=== PATIENT | male | born 1950 | race Caucasian/White ===

== ENCOUNTER → 2017-06-24 | Outpatient (CLI) | payer MEDICARE, OTHER ==
[~2017-06-24] MED LIST: BENICAR; BENICAR40 MG PO; BUMETANIDE2 MG; CELEBREX200 MG PO; CIPRO500 MG PO; COLACE100 MG PO; FISH OIL 10001000 MG PO; HYDRO/APAP; HYDROCODONE BIT1 T11 PO; KLOR-CON M2020 MEQ; LASIX40 MG PO; MULTIPLE VITAMI1 CAP PO; NATURAL E400 IU PO; SIMVASTATIN; SIMVASTATIN40 MG PO; VICODIN ES 7501 TA1 PO; VICODIN ES 7501 TAB PO; VITAMIN B COMPL1 TA1; VITAMIN C500 MG PO
[2017-06-24 09:53] LABS: HEMATOCRIT 45.7 % (42.0-52.0); HEMOGLOBIN 15.4 g/dl (14.0-18.0); MEAN CELL VOLUME 97.4 fl (80.0-94.0); MEAN CORPUSCULAR HGB 32.8 pg (27.0-31.0); MEAN CORPUSCULAR HGB CONC 33.7 g/dl (33.0-37.0); MEAN PLATELET VOLUME 9.2 fl (9.6-12.3); RED BLOOD COUNT 4.69 10*6/uL (4.50-5.90); RED CELL DISTRI WIDTH 13.6 % (0-14.5); WHITE BLOOD COUNT 6.8 10*3/uL (4.8-10.8)
[2017-06-24 10:24] LABS: ALBUMIN 3.1 gm/dl (3.1-4.5); ALKALINE PHOSPHATASE 93 U/L (45-117); BUN 11 mg/dl (7-24); CHLORIDE 108 mmol/L (98-107); CHOLESTEROL 192 mg/dL (<200); CREATININE 0.99 mg/dL (0.70-1.30); HDL CHOLESTEROL 32 mg/dl (40-60); LDL CHOLESTEROL 121 mg/dL (9-159); POTASSIUM 3.8 mmol/L (3.5-5.1); SGOT/AST 21 IU/L (3-35); SGPT/ALT 23 U/L (12-78); SODIUM 141 mmol/L (136-145); TOTAL PROTEIN 7.2 gm/dL (6.4-8.2); TRIGLYCERIDES 194 mg/dl (<150); VLDL CHOLESTEROL 39 mg/dL (6-40)
== END | disposition home or self-care (01) ==
LOC: LAB 09:36
PROVIDERS: Family Medicine
DX: Z12.5 Encounter for screening for malignant neoplasm of prostate (principal); E78.00 Pure hypercholesterolemia, unspecified; E74.9 Disorder of carbohydrate metabolism, unspecified; R53.83 Other fatigue; Z79.899 Other long term (current) drug therapy

== ENCOUNTER 2019-07-24 09:22 | Inpatient (IN) | payer OTHER ==
[~2019-07-24] VITALS: Ht 172.7 cm; Wt 134.4 kg
[~2019-07-24 09:22] MED LIST changes: +BUMETANIDE2 MG PO; +CRESTOR10 M1 PO; +FLUCONAZOLE100 MG PO; +KEFLEX 500 MG E2 CAP PO; +LISINOPRIL2.5 MG PO; +METOPROLOL SUCC50 M1 PO; +MOBIC15 MG PO; +Nizoral 2%15 GM T; +PERCOCET 10-321 EACH PO; +PERCOCET 7.5 MG-325 PO; +TIZANIDINE HCL2 MG PO; +TRAZODONE50 MG PO; +XARE20MG PO; +ZANAFLEX2 M2 PO
[2019-07-24 09:31] VITALS: BP 109/63
[2019-07-24 09:40] LABS: BASO % 0.5 % (0.0-1.0); EOS # 0.1 10*3/uL (0.0-0.4); EOS % 0.7 % (1.0-4.0); HEMATOCRIT 43.2 % (42.0-52.0); HEMOGLOBIN 13.5 g/dl (14.0-18.0); LYMPH # 0.6 10*3/uL (1.3-4.4); LYMPH % 7.3 % (27.0-41.0); MEAN CELL VOLUME 100.7 fl (80.0-94.0); MEAN CORPUSCULAR HGB 31.5 pg (27.0-31.0); MEAN CORPUSCULAR HGB CONC 31.3 g/dl (33.0-37.0); MEAN PLATELET VOLUME 9.2 fl (9.6-12.3); MONO # 0.6 10*3/uL (0.1-1.0); MONO % 6.5 % (3.0-9.0); NEUT # 7.1 10*3/uL (2.3-7.9); NEUT % 84.4 % (47.0-73.0); PLATELET COUNT AUTOMATED 207 10*3/uL (130-400); RED BLOOD COUNT 4.29 10*6/uL (4.50-5.90); RED CELL DISTRI WIDTH 15.8 % (0-14.5); WHITE BLOOD COUNT 8.4 10*3/uL (4.8-10.8)
[2019-07-24 09:51] LABS: ACT PARTIAL THROMBO TIME 32.5 SECONDS (20.0-32.1); INTERNATIONAL NORM RATIO 1.5 (2.0-3.5)
[2019-07-24 09:56] LABS: ALBUMIN 2.9 gm/dl (3.1-4.5); ALKALINE PHOSPHATASE 126 U/L (45-117); BUN 14 mg/dl (7-24); CHLORIDE 109 mmol/L (98-107); CREATININE 1.11 mg/dL (0.70-1.30); POTASSIUM 3.9 mmol/L (3.5-5.1); SGOT/AST 12 IU/L (3-35); SGPT/ALT 13 U/L (12-78); SODIUM 142 mmol/L (136-145); TOTAL PROTEIN 6.8 gm/dL (6.4-8.2)
[2019-07-24 09:58] LABS: TROPONIN I < 0.015 ng/ml (<0.045)
[2019-07-24 10:07] VITALS: BP 102/70
--- NOTE | 2019-07-24 10:44 | NUR ---
PT REFUSES TO HAVE EXCORIATION TO GROIN PHOTOGRAPHED.
[2019-07-24 11:11] VITALS: BP 121/85
--- NOTE | 2019-07-24 11:22 | NUR ---
DR. PICHARDO AT BEDSIDE.
[2019-07-24 12:00] VITALS: BP 168/57
--- NOTE | 2019-07-24 12:11 | NUR ---
[facility] under the services of ALICIA Mosley MD with a diagnosis of CHF. Chief complaint is SOB. Patient arrived via bed from ER. Monitor applied. Initial assessment completed. Vital signs taken and recorded. ALICIA MOSLEY MD notified of admission to the unit. Orders received. See assessment for past medical history, medications and allergies. Patient and/or family oriented to unit. [facility] visitation policy reviewed. Clothing/patient valuable form completed. MARCEL JONES
--- NOTE | 2019-07-24 12:35 | NUR ---
PEWRCOCET GIVEN FOR C/O BLE PAIN. RATES 8/10 ON PAIN SCALE. WILL MONITOR.
--- NOTE | 2019-07-24 13:27 | NUR ---
eating lunch, not available for echo.
--- NOTE | 2019-07-24 13:40 | NUR ---
PERCOCET EFFECTIVE PER PT.
--- NOTE | 2019-07-24 14:05 | NUR ---
DR. LOMAS'S OFFICE NOTIFIED OF CONSULT.
--- NOTE | 2019-07-24 15:22 | NUR ---
COVER INSPECTOR spoke with the patient and his about SNF. Patient stated that he did not want to go to a SNF and wanted Home Healthcare. Patient was not sure which company he has had previous, but would like the same one he was set up with last admission. COVER INSPECTOR provided the patient and his with information on [facility] and Services through [employer]. -MARIA E Solano
[2019-07-24 16:00] VITALS: BP 120/83
[2019-07-24 20:00] VITALS: BP 123/73
--- NOTE | 2019-07-24 21:55 | NUR ---
DR. PICHARDO NOTIFIED OF ELEVATED HEART RATE OF 120'S. ORDER TO GIVE .25MG OF DIGOXIN IV.
--- NOTE | 2019-07-24 23:01 | NUR ---
PER PT, "PERCOCET HELPED MY LEGS"
[2019-07-25] VITALS: BP 113/83
--- NOTE | 2019-07-25 03:04 | NUR ---
24 HR chart check completed.
--- NOTE | 2019-07-25 04:49 | NUR ---
PPRN PO PERCOCET GIVEN PER PT REQUEST FOR C/O RT MAXINE REDDING RATED 04/01
--- NOTE | 2019-07-25 05:45 | NUR ---
PERCOCET BECOMING EFFFECTIVE FOR DISCOMFORT PER PT.
[2019-07-25 08:00] VITALS: BP 108/74
--- NOTE | 2019-07-25 09:56 | NUR ---
NOTIFIED OF CONSULT
[2019-07-25 12:00] VITALS: BP 100/69
--- NOTE | 2019-07-25 12:41 | NUR ---
PHYSICAL THERAPY PT EVAL COMPLETED TODAY ON LEVEL 5: FULL EVAL TO FOLLOW. RECOMMEND PT WHILE HERE TO ADDRESS DECREASED STRENGTH AND FUNCTIONAL MOBILITY. PT EVAL IS MODERATE COMPLEXITY: [id number] D/C REC: HOME WITH HOME HEALTH. THANK YOU FOR REFERRAL KENAN REEDER PT
[2019-07-25 16:00] VITALS: BP 120/72
--- NOTE | 2019-07-25 16:25 | NUR ---
AAOX3 SITTING ON SIDE OF BED. 02 INTACT AT 2LPM VIA NASAL CANNULA; PT. STATES THAT HE DOES NOT WEAR O2 AT HOME. LUNGS DIMINISHED WITH NO COUGH NOTED. ABDOMEN OBESE. PT. VOCIES NO C/O AT THIS TIME; NO DISTRESS NOTED. CALL LIGHT WITHIN REACH. BLOOD SUGAR 111.
[2019-07-25 20:00] VITALS: BP 101/73
[2019-07-26] VITALS: BP 95/59
[2019-07-26 08:00] VITALS: BP 109/74
[2019-07-26 12:00] VITALS: BP 142/72
[2019-07-26 16:00] VITALS: BP 94/65
[2019-07-26 20:00] VITALS: BP 80/40
--- NOTE | 2019-07-26 20:35 | NUR ---
Neurological: AAOX3 Respiratory: NONLABORED, ROOM AIR Breath sounds: DIMINISHED T/O Cough: OCCASIONAL DRY Cardiovascular: HRR, DENIES CP/PRESSURE, OBESITY VS. EDEMA, PPP Gastrointestinal: NORMOACTIVE X4 QUADS, DENIES N/V/D/C, ABD SOFT/NONTENDER/OBESE Genito/Urinary: DENIES DYSURIA Musculoskeketal: AMBULATORY, ESCORIATION TO ABD FOLDS/BREASTS/INNER THIGHS PATIENT IS SITTING ON SIDE OF BED WITH NO S/S OF DISTRESS OR C/O NOTED. BED IS LOW, LOCKED, AND CALL LIGHT IS WITHIN REACH. WILL CONTINUE TO MONITOR. MAUREEN DIALLO A
[2019-07-26 21:17] VITALS: BP 98/70
[2019-07-27] VITALS: BP 96/51
--- NOTE | 2019-07-27 02:30 | NUR ---
DR. PICHARDO CONTACTED IN REGARDS TO 16 BEAT RUN OF [facility], MAGNESIUM LEVEL ORDERED AND INSTRUCTED TO CONTACT DR. CAMPOS.
--- NOTE | 2019-07-27 02:32 | NUR ---
DR. CAMPOS IS NOT AVALIABLE AT THIS TIME, WILL TRY AGAIN WHEN AVALIABLE.
--- NOTE | 2019-07-27 07:25 | NUR ---
DR. CAMPOS AWARE OF 16 BEAT RUN OF [facility].
[2019-07-27 07:39] LABS: BUN 22 mg/dl (7-24); CHLORIDE 103 mmol/L (98-107); CREATININE 1.13 mg/dL (0.70-1.30); POTASSIUM 3.7 mmol/L (3.5-5.1); SODIUM 138 mmol/L (136-145)
[2019-07-27 09:45] VITALS: BP 98/64
--- NOTE | 2019-07-27 10:30 | NUR ---
Test Consultant in to talk to patient. Patient states lives at home with his . There are 0 steps in the home. There is a stair glide. Physician: Dr. Roosevelt Rice but would like to start seeing Dr. Quigley (Dr. Quigley notified) Pharmacy: [facility]: has had [facility] previously and would like their services again upon discharge Patient's level of ADLs: MINIMAL ASSIST Patient has working utilities: yes DME: walker, cane Follow-up physician's appointment after d/c: he prefers to make his own follow up appt after discharge Does patient want to access PORTAL?: no Discharge plan discussed with patient. He lives at home with his . He is independent in his ADLs and ambulates with either a walker or a cane. Discussed short term SNF and he states he will not go back to [facility]. Discussed other SNF facilities and he refuses. Discussed home health care services and he is agreeable and would like [facility] services as he has had them in the past. When medically stable he will be discharged to home with [facility]. His will provide transportation on discharge. SORAIDA MELENDEZ
--- NOTE | 2019-07-27 10:38 | NUR ---
CHRISTOFER FERNANDO [id number] Please refer to the physician's history and physical for past medical history, comorbid conditions, and allergies. Diagnosis: ACUTE EXACERBATION OF CHF Tulio Score: 16,AT RISK WOUND DESCRIPTIONS: Wound Number: 1 Location of the wound: right anterior lower extremity (toro) Thickness: Full Size: 2.2cm x 2.7cm x 0.1cm Tunneling: none Undermining: none Sinus Tract: none Presence of Exudate: Serous Amount: Light Color: Brown, yellow, red Odor: None Periwound Skin Appearance: Erythema Wound edges: approximated Pain (associated with wound): none at time of assessment How does patient state this happened? pt stated this comes and goes Wound Number: 2 Location of the wound: left breast Type of wound: fungal Thickness: Partial Size: 9.5cm x 30.0cm x 0.1cm Tunneling: none Undermining: none Sinus Tract: none Presence of Exudate: Serous Amount: Light Color: Red Odor: Musty Periwound Skin Appearance: Normal Wound edges: approximated Pain (associated with wound): tender to touch How does patient state this happened? pt stated he gets this all the time Wound Number: 3 Location of the wound: right calf Type of wound: fungal Thickness: Partial Size: 2.5cm x 4.3cm x 0.1cm Tunneling: none Undermining: none Sinus Tract: none Presence of Exudate: Serous Amount: Light Color: Red Odor: None Periwound Skin Appearance: Normal Wound edges: approximated Pain (associated with wound): none at time of assessment How does patient state this happened? pt stated this comes and goes Wound Number: 4 Location of the wound: groin to umbilicus Type of wound: fungal Thickness: Partial Size: 38.0cm x 80.0cm x 0.1cm Tunneling: none Undermining: none Sinus Tract: none Presence of Exudate: Serous Amount: Light Color: Red Odor: None Periwound Skin Appearance: Erythema Wound edges: approximated Pain (associated with wound): tender to touch How does patient state this happened? pt stated this comes and goes Wound Number: 5 Location of the wound: right breast Type of wound: fungal Thickness: Partial Size: 38.0cm x 80.0cm x 0.1cm Tunneling: none Undermining: none Sinus Tract: none Presence of Exudate: Serous Amount: Light Color: Red Odor: None Periwound Skin Appearance: Erythema Wound edges: approximated Pain (associated with wound): tender to touch How does patient state this happened? pt stated this comes and goes Surface the patient is resting on: Isoflex SKIN PREVENTION RECOMMENDATION: 1. Pressure redistribution support surface as appropriate 2. Elevate heels 3. Remove boots/TEDS every shift and reapply 4. Head of bed 30 degrees as tolerated 5. Assess nutrition and hydration 6. Manage moisture 7. Avoid the use of containment devices while in bed 8. Use absorptive products on surfaces limit layers of linens on bed 9. Turn and reposition every 1-2 hours in bed and every 1 hour in chair as tolerated 10. Weight shifts every 15 minutes while up in chair 11. Offloading with pillows or device to keep heels elevated off bed 12. Monitor skin at least every shift 13. Inspect under medical devices twice a day WOUND TREATMENT RECOMMENDATIONS: Venous and arterial studies for non-healing wound. Consult podiatry podiatry for possible debridement if studies allow. Full thickness guidelines: Cleanse right anterior lower extremity and right posterior lower extremity with nss and apply sureprep around the wound therahoney to wound bed and cover with optifoam gentle every 2 days and prn for soiling. Continue nystatin powder: Cleanse bilateral breasts and bilateral groins with soap and water and apply nystatin powder every [address] abd pads Patient is on PO antifungal medication diflucan til 07/31/19. Heel raiser pro boots to bilateral feet while in bed.
[2019-07-27 12:00] VITALS: BP 102/58
--- NOTE | 2019-07-27 13:41 | NUR ---
Occupational therapy orders received and chart reviewed. Per patient, he was not "feeling up to it" for the completion of the OT evaluationa and POC. Will follow up with patient. Thank you. Freida Blackman, OTR/L
--- NOTE | 2019-07-27 14:12 | NUR ---
PHYSICAL THERAPY Patient was approached several times this pm for therapy and was receiving nursing care on first attempt and out of his room for a CT Scan upon second attempt. Will continue per POC as able. Ventura Banegas, TOWER EXCAVATOR OPERATOR
[2019-07-27 16:00] VITALS: BP 95/66
--- NOTE | 2019-07-27 18:12 | NUR ---
Percocet given per patient request for c/o chronic leg pain rated 7/10. Will monitor.
[2019-07-27 20:00] VITALS: BP 129/67
[2019-07-28] VITALS: BP 112/60
--- NOTE | 2019-07-28 02:23 | NUR ---
PERCOCET GIVEN FOR 08/02 PAIN TO RT LEG PER PT REQUEST. CALL LIGHT IN [facility].
--- NOTE | 2019-07-28 02:39 | NUR ---
PT RESTING ON BACK; SNORING RESPIRATIONS EASY AND REGULAR ON ROOM AIR. PRN PERCOCET EFFEECTIVE FOR PAIN. CALL LIGHT WITHIN REACH.
--- NOTE | 2019-07-28 08:43 | NUR ---
PHYSICAL THERAPY Patient requests that therapy come back later in the morning due to the patient presently eating breakfast and needing to rest a little longer. Will check back later with patient. CELENA ISAACS PLANT HR MANAGER
--- NOTE | 2019-07-28 10:30 | NUR ---
Application Support Developer in to see patient. No new needs or request at this time. When medically stable he will be discharged to home with [facility] services. Per multidisciplinary discharge planning meeting continue to diuresis with Bum[employer].
[2019-07-28 12:00] VITALS: BP 93/67
--- NOTE | 2019-07-28 13:37 | NUR ---
Patient declined Occupational Therapy evaluation reporting he fell today near the bathroom door. Patient stated that staff was with him and "it too seven of them to get me up" Patient stated his left foot was sore. He declined OT evaluation this date. Jeanne Ellington OTR/L
--- NOTE | 2019-07-28 14:11 | NUR ---
PHYSICAL THERAPY Patient declined therapy saying he fell earlier and hurt his L foot. Patient also says he doesn't feel well and has pain in his L foot. His is present and says, the patient is "grumpy" right now. Physical Therapy will check back at a later date. CELENA ISAACS ROLLER SHOP UTILITY WORKER
[2019-07-28 20:00] VITALS: BP 110/48
[2019-07-28 20:55] VITALS: BP 110/68
--- NOTE | 2019-07-28 21:00 | NUR ---
SPOKE WITH CECILIO FROM PHARMACY.WILL BE SENDING MORE NYSTATIN POWDER UP.
[2019-07-29] VITALS: BP 136/82
--- NOTE | 2019-07-29 00:01 | NUR ---
PRN PERCOCET ADMINISTERED PRESCRIBED FOR PT C/O LEFT SIDED CHRONIC LEG PAIN RATED AN 8/10 ON THE PAIN SCALE.
--- NOTE | 2019-07-29 07:42 | NUR ---
To c-rehab for stress test.
--- NOTE | 2019-07-29 07:45 | NUR ---
IMFORMED CONSENT OBTAINED FOR A LEXISCAN STRESS TEST WITH DR. PICHARDO. RESTING EKG A-FIB/RBBB WITH A HT RT OF 88, AND A BP OF 110/74. SPO2 97% VIA RA WITH CLEAR BREATH SOUNDS. COMPLETED ONE MINUTE OF A LEXISCAN PROTOCOL RECEIVING LEXISCAN 0.4 MG OVER 10 SECONDS. VOICED NO SYMPTOMS. HAD A PEAK HT RT OF 87, WITH A BP OF 122/64. LAST RECOVERY HT RT OF 95, WITH A BP OF 110/68. AWAITING NUCLEAR IMAGING IN STABLE CONDITION.
--- NOTE | 2019-07-29 07:59 | NUR ---
PHYSICAL THERAPY PT NOT IN ROOM UPON ATTEMPT THIS A.M. NURSING NOTES STATED THAT PT IS A STRESS TEST. PHYSICAL THERAPY WILL ATTEMPT AT A LATER TIME /DATE. GRIFFIN BROWN PTA
[2019-07-29] MEDS ORDERED: NYSTOP60 GM T (08:24)
[2019-07-29] MEDS ORDERED: Lanoxin PO (08:24)
[2019-07-29] MEDS ORDERED: ALDACTONE25 MG PO (08:24)
[2019-07-29] MEDS ORDERED: DOXYCYCLINE100 M3 PO (08:26)
[2019-07-29] MEDS ORDERED: LIPITOR10 MG PO (08:26)
[2019-07-29 08:30] VITALS: BP 1104/68
--- NOTE | 2019-07-29 09:23 | NUR ---
Spoke to Jocelyne at [facility]. They are able to accept patient and start of care will be tomorrow. Faxed referral to [phone].
--- NOTE | 2019-07-29 11:35 | NUR ---
Stress test complete. Dr. Ramirez called and ok to discharge. Dr. Chapa in and recommended f/u with cardiology. Pt. is aware. Discharge instruction given and pt. was taken to lobby to meet w/ waiting spouse. All wounds photographed . prior to discharge.
--- NOTE | 2019-07-29 13:34 | NUR ---
Occupational therapy orders were received and chart had been reviewed. Patient was discharged prior to OT eval and POC. Thank you. Freida Blackman OTR/L
--- NOTE | 2019-07-30 07:59 | NUR ---
PHYSICAL THERAPY CO-SIGN I approve of the Physical Therapy notes written above. Kendra Jain, PT, DPT
== END 2019-07-29 11:35 | disposition home health service (06) | DRG 602 ==
LOC: ED 09:22 → EDHOLD 10:26 → 5E 10:26
PROVIDERS: Internal Medicine; ADMIT Internal Medicine
PROC: 3E073KZ Introduction of Other Diagnostic Substance into Coronary Artery, Percutaneous Approach (ICD-10-PCS; principal; 2019-07-29)
PROC: 4A02XM4 Measurement of Cardiac Total Activity, External Approach (ICD-10-PCS; principal; 2019-07-29)
DX: L03.116 Cellulitis of left lower limb (principal); I50.23 Acute on chronic systolic (congestive) heart failure; J96.10 Chronic respiratory failure, unspecified whether with hypoxia or hypercapnia; E46 Unspecified protein-calorie malnutrition; I47.2 Ventricular tachycardia; Z68.42 Body mass index [BMI] 45.0-49.9, adult; I42.0 Dilated cardiomyopathy; I11.0 Hypertensive heart disease with heart failure; L03.115 Cellulitis of right lower limb; I48.21 Permanent atrial fibrillation; M19.90 Unspecified osteoarthritis, unspecified site; I87.2 Venous insufficiency (chronic) (peripheral); B35.6 Tinea cruris; E66.01 Morbid (severe) obesity due to excess calories; Z96.653 Presence of artificial knee joint, bilateral; H60.11 Cellulitis of right external ear; Z99.81 Dependence on supplemental oxygen; Z88.0 Allergy status to penicillin; Z88.8 Allergy status to other drugs, medicaments and biological substances; Z82.49 Family history of ischemic heart disease and other diseases of the circulatory system; Z80.8 Family history of malignant neoplasm of other organs or systems

== ENCOUNTER 2019-08-01 13:23 | Emergency (ER) | payer OTHER ==
[~2019-08-01] VITALS: Ht 175.2 cm; Wt 135.2 kg
[~2019-08-01 13:23] MED LIST changes: +ALDACTONE25 MG PO; +DOXYCYCLINE100 M3 PO; +LIPITOR10 MG PO; +Lanoxin PO; +NYSTOP60 GM T
== END 2019-08-01 15:19 | disposition home or self-care (01) ==
LOC: ED 13:23
DX: S01.01XA Laceration without foreign body of scalp, initial encounter (principal); S61.011A Laceration without foreign body of right thumb without damage to nail, initial encounter; Z88.0 Allergy status to penicillin; Z87.891 Personal history of nicotine dependence; W01.0XXA Fall on same level from slipping, tripping and stumbling without subsequent striking against object, initial encounter; Y93.89 Activity, other specified; Y92.090 Kitchen in other non-institutional residence as the place of occurrence of the external cause; Y99.8 Other external cause status

== ENCOUNTER 2019-12-22 03:13 | Emergency (ER) | payer OTHER ==
[~2019-12-22] VITALS: Ht 175.2 cm; Wt 131.1 kg
== END 2019-12-22 05:15 | disposition home or self-care (01) ==
LOC: ED 03:13
DX: R04.0 Epistaxis (principal); Z88.8 Allergy status to other drugs, medicaments and biological substances; Z79.899 Other long term (current) drug therapy

== ENCOUNTER 2020-03-25 01:47 | Emergency (ER) | payer OTHER ==
[~2020-03-25] VITALS: Ht 175.2 cm; Wt 126.1 kg
[2020-03-25] MEDS ORDERED: DEBROX15 ML OT (02:33)
== END 2020-03-25 02:49 | disposition home or self-care (01) ==
LOC: ED 01:47
DX: R04.0 Epistaxis (principal); I11.0 Hypertensive heart disease with heart failure; I50.9 Heart failure, unspecified; M19.90 Unspecified osteoarthritis, unspecified site; E78.00 Pure hypercholesterolemia, unspecified; I48.91 Unspecified atrial fibrillation; Z88.8 Allergy status to other drugs, medicaments and biological substances; Z88.0 Allergy status to penicillin; Z79.899 Other long term (current) drug therapy

== ENCOUNTER 2020-04-01 22:49 | Emergency (ER) | payer OTHER ==
[~2020-04-01] VITALS: Ht 172.7 cm; Wt 156.5 kg
[~2020-04-01 22:49] MED LIST changes: +DEBROX15 ML OT
[2020-04-01 23:06] LABS: BASO % 0.4 % (0.0-1.0); EOS # 0.2 10*3/uL (0.0-0.4); EOS % 2.2 % (1.0-4.0); HEMATOCRIT 42.8 % (42.0-52.0); LYMPH # 1.2 10*3/uL (1.3-4.4); LYMPH % 16.3 % (27.0-41.0); MEAN CELL VOLUME 98.6 fl (80.0-94.0); MEAN CORPUSCULAR HGB 32.3 pg (27.0-31.0); MEAN CORPUSCULAR HGB CONC 32.7 g/dl (33.0-37.0); MEAN PLATELET VOLUME 9.1 fl (9.6-12.3); MONO # 0.6 10*3/uL (0.1-1.0); MONO % 7.6 % (3.0-9.0); NEUT # 5.4 10*3/uL (2.3-7.9); NEUT % 73.2 % (47.0-73.0); PLATELET COUNT AUTOMATED 164 10*3/uL (130-400); RED BLOOD COUNT 4.34 10*6/uL (4.50-5.90); RED CELL DISTRI WIDTH 13.3 % (0-14.5); WHITE BLOOD COUNT 7.3 10*3/uL (4.8-10.8)
[2020-04-01 23:16] LABS: ACT PARTIAL THROMBO TIME 34.5 SECONDS (20.0-32.1); INTERNATIONAL NORM RATIO 1.3 (2.0-3.5)
[2020-04-01 23:21] LABS: ALBUMIN 3.3 gm/dl (3.1-4.5); ALKALINE PHOSPHATASE 79 U/L (45-117); BUN 16 mg/dl (7-24); CHLORIDE 110 mmol/L (98-107); CREATININE 1.13 mg/dL (0.70-1.30); POTASSIUM 4.2 mmol/L (3.5-5.1); SGOT/AST 14 IU/L (3-35); SGPT/ALT 19 U/L (12-78); SODIUM 141 mmol/L (136-145); TOTAL PROTEIN 6.9 gm/dL (6.4-8.2)
== END 2020-04-02 00:28 | disposition home or self-care (01) ==
LOC: ED 22:49
PROVIDERS: Nurse Practitioner Family
DX: R04.0 Epistaxis (principal); M19.90 Unspecified osteoarthritis, unspecified site; I48.91 Unspecified atrial fibrillation; I11.0 Hypertensive heart disease with heart failure; I50.9 Heart failure, unspecified; E78.5 Hyperlipidemia, unspecified; Z88.0 Allergy status to penicillin; Z88.8 Allergy status to other drugs, medicaments and biological substances; Z79.899 Other long term (current) drug therapy; Z87.891 Personal history of nicotine dependence

== ENCOUNTER → 2020-07-12 | Outpatient (CLI) | payer OTHER | END | disposition home or self-care (01) | LOC: RESCLI 01:08 | PROVIDERS: ATTEND Internal Medicine | DX: I11.0 Hypertensive heart disease with heart failure (principal); I50.20 Unspecified systolic (congestive) heart failure; I48.91 Unspecified atrial fibrillation; G47.00 Insomnia, unspecified; E78.5 Hyperlipidemia, unspecified; M19.90 Unspecified osteoarthritis, unspecified site; Z79.899 Other long term (current) drug therapy; Z98.890 Other specified postprocedural states; Z88.0 Allergy status to penicillin; Z87.891 Personal history of nicotine dependence ==

== ENCOUNTER 2020-09-07 22:32 | Inpatient (IN) | payer OTHER ==
[~2020-09-07] VITALS: Ht 175.2 cm; Wt 118.9 kg
[2020-09-07 22:32] VITALS: BP 111/55
[2020-09-07 22:52] LABS: BILIRUBIN Negative (Negative); BLOOD 3+ (Negative); CLARITY Cloudy (Clear); COLOR Yellow (Yellow); GLUCOSE Negative (Negative); KETONE Trace (Negative); LEUKO ESTERASE 2+ (Negative); NITRITE Negative (Negative); SPECIFIC GRAVITY 1.025 (1.001-1.030)
[2020-09-07 23:04] LABS: EOS % 0.2 % (1.0-4.0); HEMATOCRIT 41.7 % (42.0-52.0); LYMPH # 0.3 10*3/uL (1.3-4.4); LYMPH % 5.5 % (27.0-41.0); MEAN CELL VOLUME 94.1 fl (80.0-94.0); MEAN CORPUSCULAR HGB 31.4 pg (27.0-31.0); MEAN CORPUSCULAR HGB CONC 33.3 g/dl (33.0-37.0); MONO # 0.2 10*3/uL (0.1-1.0); MONO % 4.3 % (3.0-9.0); NEUT # 4.8 10*3/uL (2.3-7.9); NEUT % 89.6 % (47.0-73.0); PLATELET COUNT AUTOMATED 108 10*3/uL (130-400); RED BLOOD COUNT 4.43 10*6/uL (4.50-5.90); RED CELL DISTRI WIDTH 14.1 % (0-14.5); WHITE BLOOD COUNT 5.3 10*3/uL (4.8-10.8)
[2020-09-07 23:18] LABS: BACTERIA 2+; RBC 16-20 rbc/hpf (0-2)
[2020-09-07 23:19] LABS: ALBUMIN 3.1 gm/dl (3.1-4.5); ALKALINE PHOSPHATASE 69 U/L (45-117); BUN 19 mg/dl (7-24); CHLORIDE 104 mmol/L (98-107); CREATININE 1.28 mg/dL (0.70-1.30); POTASSIUM 3.7 mmol/L (3.5-5.1); SGOT/AST 26 IU/L (3-35); SGPT/ALT 16 U/L (12-78); SODIUM 133 mmol/L (136-145); TOTAL PROTEIN 6.7 gm/dL (6.4-8.2); TROPONIN I 0.032 ng/ml (<0.045)
--- NOTE | 2020-09-07 23:31 | NUR ---
PT REQUESTING URINAL AT THIS TIME. NO OTHER COMPLAINTS. WILL CONTINUE TO MONITOR.
[2020-09-08] VITALS (8 sets, daily range): BP systolic 93–134; BP diastolic 44–82
[2020-09-08] MEDS ORDERED: DIGOXIN0.125 MG/1 PO (00:50)
[2020-09-08] MEDS ORDERED: ENALAPRIL10 MG PO (01:55)
[2020-09-08] MEDS ORDERED: NYSTATIN CREAM15 GM T (01:55)
[2020-09-08] MEDS ORDERED: DIGOXIN125 MCG PO (01:56)
--- NOTE | 2020-09-08 02:16 | NUR ---
THE PATIENT ARRIVED TO THE 4TH FLOOR FROM THE ED AT 0130HRS. BEDSIDE REPORT WAS TAKEN AT THAT TIME.
--- NOTE | 2020-09-08 02:17 | NUR ---
PT STATES THAT HE IS HAVING A LITTLE BIT OF LEG AND BACK PAIN. HE SAYS THAT THIS IS CHRONIC FOR HIM, AND HE NORMALLY TREATS WITH P.O. PERCOCET AT HOME. I TOLD HIM SOON HIS MED REC WAS DONE, ID GET HIM SOMETHING ORDERED FROM THE DOC.
--- NOTE | 2020-09-08 04:00 | NUR ---
PT RESTING IN BED WITH EYES CLOSED. RESP-EASY AND REGULAR. CALL LIGHT IN REACH. SEE SHFIT ASSESSMENT.
[2020-09-08 06:47] LABS: HEMATOCRIT 39.7 % (42.0-52.0); LYMPH # 0.5 10*3/uL (1.3-4.4); LYMPH % 9.1 % (27.0-41.0); MEAN CELL VOLUME 95.4 fl (80.0-94.0); MEAN CORPUSCULAR HGB 31.3 pg (27.0-31.0); MEAN CORPUSCULAR HGB CONC 32.7 g/dl (33.0-37.0); MONO # 0.2 10*3/uL (0.1-1.0); MONO % 3.4 % (3.0-9.0); NEUT # 4.3 10*3/uL (2.3-7.9); NEUT % 87.1 % (47.0-73.0); PLATELET COUNT AUTOMATED 102 10*3/uL (130-400); RED BLOOD COUNT 4.16 10*6/uL (4.50-5.90)
[2020-09-08 07:08] LABS: ALBUMIN 2.8 gm/dl (3.1-4.5); BUN 17 mg/dl (7-24); CHLORIDE 103 mmol/L (98-107); CHOLESTEROL 79 mg/dL (<200); LDH 226 U/L (87-241); TRIGLYCERIDES 71 mg/dl (<150); VLDL CHOLESTEROL 14 mg/dL (6-40)
[2020-09-08 07:18] LABS: ALKALINE PHOSPHATASE 67 U/L (45-117); CREATININE 1.03 mg/dL (0.70-1.30); FREE T4 1.55 ng/dl (0.76-1.46); HDL CHOLESTEROL 34 mg/dl (40-60); LDL CHOLESTEROL 31 mg/dL (9-159); SGOT/AST 23 IU/L (3-35); SGPT/ALT 15 U/L (12-78); THYROID STIM HORMONE (HS) 0.806 uIU/ml (0.358-4.75); TOTAL PROTEIN 6.6 gm/dL (6.4-8.2)
[2020-09-08 07:27] LABS: SODIUM 136 mmol/L (136-145)
[2020-09-08 07:29] LABS: POTASSIUM 4.7 mmol/L (3.5-5.1)
[2020-09-08 07:31] LABS: FERRITIN 779.7 ng/mL (22.0-322.0); VITAMIN D, 25-HYDROXY 12.4 ng/mL (30-100)
[2020-09-08 07:42] LABS: ACT PARTIAL THROMBO TIME 46.5 SECONDS (20.0-32.1); INTERNATIONAL NORM RATIO 1.4 (2.0-3.5)
--- NOTE | 2020-09-08 08:00 | NUR ---
RESTING IN BED. NO C/O AT THSI TIME. CALL LIGHT IN REACH. SEE SHIFT ASSESSMENT.
--- NOTE | 2020-09-08 09:40 | NUR ---
PT C/O BILATERAL LOWER LEG PAIN, RATES PAIN 11 ON PAIN SCALE 0-10. MEDICATED WITH TYLENOL PO PER PRN ORDER, SEE EMAR. CALL LIGHT IN REACH.
--- NOTE | 2020-09-08 10:30 | NUR ---
RESTING IN BED WITH EYES CLOSED. RESP-EASY AND REGULAR. MEDICATION SEEMS TO BE EFFECTIVE. CALL LIGHT IN REACH.
--- NOTE | 2020-09-08 11:11 | NUR ---
Nursing screen received and chart reviewed. Patient admitted following a fall at home, UTI, and under suspected COVID-19 precautions. If patient has a decline in ADLs, transfers, or mobility, please consult OT. Thank you. Freida Blackman OTR/L
--- NOTE | 2020-09-08 12:48 | NUR ---
Nutritional Support Services Note; Appetite is good for meals. He is eating 100% of regular diet as ordered. Ht.5'9 Wt.286#. Moderate protein calorie malnutrition. Encouraged healthy eating at home. Will follow as needed. Daisy Rodriguez Rdn Ld
--- NOTE | 2020-09-08 13:15 | NUR ---
TOLERATED ROUTINE MED WITH NO PROBLEM. C/O BILATERAL LEG PAIN, RATES PAIN 10 ON PAIN SCALE 0-10. MEDICATED WITH PERCOCET PO PER PRN ORDER, SEE EMAR. CALL LIGHT IN REACH.
--- NOTE | 2020-09-08 14:10 | NUR ---
RESTING IN BED WITH EYES CLOSED, AWAKENS EASILY. RESP-EASY AND REGULAR. MEDICATION EFFECTIVE PER PT. CALL LIGHT IN REACH.
--- NOTE | 2020-09-08 15:03 | NUR ---
PHYSICAL THERAPY Physical therapy evaluation completed. Full details and evaluation to follow. Moderate complexity skilled PT evaluation performed (84348). PT will work on strength, balance, gait, transfers, AD usage and safety per POC. Recommmend SNF vs. home with 24hr assist and home health. Penelope Shannon PT DPT
--- NOTE | 2020-09-08 15:41 | NUR ---
PHYSICAL THERAPY Nursing screen recieved and chart reviewed. PT consult has been ordered and completed. Pt is on PT caseload at this time. Thanks Penelope Shannon PT DPT
--- NOTE | 2020-09-08 16:00 | NUR ---
PT RESTING IN BED WITH EYES CLOSED, HOB ELEVATED. RESP-EASY AND REGULAR. NYSTATIN POWDER APPLIED. CALL LIGHT IN REACH. SEE SHIFT ASSESSMENT.
--- NOTE | 2020-09-08 21:00 | NUR ---
PT SEEN AND ASSESSED. PT RESTING QUIETLY WITHOUT C/O AT THIS TIME.
[2020-09-09] VITALS: BP 112/64
--- NOTE | 2020-09-09 03:45 | NUR ---
24 HR chart check completed.
[2020-09-09 06:46] LABS: HEMATOCRIT 41.3 % (42.0-52.0); LYMPH # 0.4 10*3/uL (1.3-4.4); LYMPH % 7.4 % (27.0-41.0); MEAN CELL VOLUME 95.4 fl (80.0-94.0); MEAN CORPUSCULAR HGB 31.6 pg (27.0-31.0); MEAN CORPUSCULAR HGB CONC 33.2 g/dl (33.0-37.0); MEAN PLATELET VOLUME 10.2 fl (9.6-12.3); MONO # 0.4 10*3/uL (0.1-1.0); MONO % 6.3 % (3.0-9.0); NEUT # 4.9 10*3/uL (2.3-7.9); NEUT % 85.9 % (47.0-73.0); PLATELET COUNT AUTOMATED 117 10*3/uL (130-400); RED BLOOD COUNT 4.33 10*6/uL (4.50-5.90); RED CELL DISTRI WIDTH 13.7 % (0-14.5); WHITE BLOOD COUNT 5.7 10*3/uL (4.8-10.8)
[2020-09-09 06:48] LABS: BUN 18 mg/dl (7-24); CHLORIDE 110 mmol/L (98-107); CREATININE 0.82 mg/dL (0.70-1.30); LDH 219 U/L (87-241); POTASSIUM 4.1 mmol/L (3.5-5.1); SODIUM 139 mmol/L (136-145)
[2020-09-09 06:58] LABS: DIGOXIN 0.78 ng/ml (0.8-2.0)
[2020-09-09 08:00] VITALS: BP 132/70
--- NOTE | 2020-09-09 08:30 | NUR ---
Building Supervisor spoke to patient via phone. Patient states lives at home with his . There are 0 steps in the home. There is a stair glide. Physician: Dr. Jairo Akbar Pharmacy: [facility] services: has had [facility] services previously and would like their services again upon discharge Patient's level of ADLs: MINIMAL ASSIST Patient has working utilities: yes DME: cane, walker, rollator, wheelchair Follow-up physician's appointment after d/c: will be made by the hospitalist nurse director upon discharge Does patient want to access PORTAL?: no Discharge plan discussed with patient. He lives at home with his . His is currently at [facility] in [place]. He is independent in his ADLs and ambulates with either a cane or a walker. Discussed short term SNF and he states he adamantly refuses. Discussed home health care services and he is agreeable and would like [facility] services as he has had them in the past. Hospitalist nurse director notified. When medically stable he will be discharged to home with [facility]. He is concerned about his him because she is upset that he is not able to get her home from [facility]. He states he will have to take a taxi home. SORAIDA MELENDEZ
--- NOTE | 2020-09-09 09:17 | NUR ---
PHOTO MASK CLEANER FAXED HOME HEALTH REFERRAL TO [facility] FOR REVIEW.
--- NOTE | 2020-09-09 09:55 | NUR ---
PT SITTING UP IN CHAIR. RESP-EASY AND REGULAR. C/O BILATERAL LEG PAIN, RATES PAIN 13 ON PAIN SCALE 0-10. MEDICATED WITH PERCOCET PO PER PRN ORDER, SEE EMAR. TOLERATED ROUTINE MED WITH NO PROBLEM. CALL LIGHT IN REACH. SEE SHIFT ASSESSMENT.
--- NOTE | 2020-09-09 10:27 | NUR ---
Received call from Jocelyne at [facility] regarding discharge time frame. Informed during the morning multidisciplinary discharge planning meeting physicians are awaiting his COVID results to return. Jocelyne is going to put him on the schedule for Saturday. If patient does NOT discharge please call [phone] to let Rossana know.
--- NOTE | 2020-09-09 10:50 | NUR ---
PT RESTING IN CHAIR WITH EYES CLOSED, AWAKENS EASILY. RESP-EASY AND REGULAR. MEDICATION SEEMS TO BE EFFECTIVE. CALL LIGHT IN REACH.
[2020-09-09 12:00] VITALS: BP 121/61
--- NOTE | 2020-09-09 12:30 | NUR ---
PT RESTING IN RECLINER. NO SIGNS OF ACUTE DISTRESS NOTED. RESP-EASY AND REGULAR. NO C/O AT THIS TIME. CALL LIGHT IN REACH.
--- NOTE | 2020-09-09 14:00 | NUR ---
PT SITTING UP IN RECLINER CHAIR. RESP-EASY AND REGULAR. CALL LIGHT IN REACH.
--- NOTE | 2020-09-09 14:06 | NUR ---
PHYSICAL THERAPY Patient presented to therapy in sitting in room- 410 and COVID + with report of no pain or other complaints. Patient gives informed consent for treatment. Patient was identified by name and on wristband. Patient is not on spO2, IVs and does not have a catheter. Patient performed STS from bedside chair with SBA. Patient ambulated 50' x 1 with no assistive device and Close Supervision inside room only. Patient completed 5 Xs sit to stands in 30 seconds using his UEs to push off the armrests of chair. Patient then performed seated katherine LE THER EX 2 x 10 reps each LE including LAQs, marches, heel/toe raises and hip abduction for strengthening the LEs. Patient was left in bedside chair with call light within reach and LEs in low position. Patient was 1:1 with this GOLD RECLAIMER for 18 minutes total. PPE donned and doffed as per airborne protocol precautions using N 95. CELENA ISAACS GOLD RECLAIMER
--- NOTE | 2020-09-09 14:42 | NUR ---
PHYSICAL THERAPY CO-SIGN I approve of the Physical Therapy notes written above. SORAIDA GENAO PT,DPT
[2020-09-09 20:00] VITALS: BP 116/74
--- NOTE | 2020-09-09 20:30 | NUR ---
PT SEEN AND ASSESSED. PT DENIES ANY C/O AT THIS TIME. PT RESTING IN HIS RECLINER CHAIR.
--- NOTE | 2020-09-09 21:54 | NUR ---
PT REQUEST PAIN MEDICATION FOR GENERALIZED PAIN 03/02
[2020-09-10] VITALS: BP 130/81
--- NOTE | 2020-09-10 01:16 | NUR ---
24 HR chart check completed.
[2020-09-10 05:55] LABS: BUN 20 mg/dl (7-24); CHLORIDE 108 mmol/L (98-107); CREATININE 0.91 mg/dL (0.70-1.30); LDH 302 U/L (87-241); SODIUM 139 mmol/L (136-145)
[2020-09-10 06:13] LABS: BASO % 0.1 % (0.0-1.0); LYMPH # 0.6 10*3/uL (1.3-4.4); LYMPH % 7.1 % (27.0-41.0); MEAN CELL VOLUME 96.8 fl (80.0-94.0); MEAN CORPUSCULAR HGB 31.4 pg (27.0-31.0); MEAN CORPUSCULAR HGB CONC 32.4 g/dl (33.0-37.0); MEAN PLATELET VOLUME 10.1 fl (9.6-12.3); MONO # 0.5 10*3/uL (0.1-1.0); MONO % 5.7 % (3.0-9.0); NEUT # 7.3 10*3/uL (2.3-7.9); NEUT % 86.3 % (47.0-73.0); PLATELET COUNT AUTOMATED 143 10*3/uL (130-400); RED BLOOD COUNT 4.65 10*6/uL (4.50-5.90); RED CELL DISTRI WIDTH 14.1 % (0-14.5); WHITE BLOOD COUNT 8.5 10*3/uL (4.8-10.8)
[2020-09-10 09:00] VITALS: BP 135/90
[2020-09-10] MEDS ORDERED: LEVOFLOXACIN500 MG PO ×2 (11:07)
[2020-09-10] MEDS ORDERED: DECADRON6 M1 PO ×2 (11:07)
--- NOTE | 2020-09-10 13:07 | NUR ---
PT DISCHARGED HOME AT THIS TIME. HEPLOCK AND DATABASE ADMINISTRATION ASSOCIATE DC'D. PT TRANSPORTED OUT VIA WHEELCHAIR TO AWAITING RIDE. DISCHARGE INSTRUCTIONS REVIEWED.
== END 2020-09-10 13:07 | disposition home or self-care (01) | DRG 177 ==
LOC: ED 22:32 → 4E 09-08 00:05 → EDHOLD 09-08 00:05 → 4E 09-08 01:05
PROVIDERS: Hospitalist; Internal Medicine; ADMIT Family Medicine; ATTEND Family Medicine
DX: U07.1 COVID-19 (principal); J18.9 Pneumonia, unspecified organism; N39.0 Urinary tract infection, site not specified; E87.1 Hypo-osmolality and hyponatremia; E44.0 Moderate protein-calorie malnutrition; I50.22 Chronic systolic (congestive) heart failure; Z68.43 Body mass index [BMI] 50.0-59.9, adult; I48.91 Unspecified atrial fibrillation; L30.4 Erythema intertrigo; E78.5 Hyperlipidemia, unspecified; I87.2 Venous insufficiency (chronic) (peripheral); I11.0 Hypertensive heart disease with heart failure; Z96.653 Presence of artificial knee joint, bilateral; D53.9 Nutritional anemia, unspecified; M19.90 Unspecified osteoarthritis, unspecified site; E66.01 Morbid (severe) obesity due to excess calories; R79.82 Elevated C-reactive protein (CRP); R00.0 Tachycardia, unspecified; B96.89 Other specified bacterial agents as the cause of diseases classified elsewhere; Z88.0 Allergy status to penicillin; Z88.8 Allergy status to other drugs, medicaments and biological substances; Z87.891 Personal history of nicotine dependence; Z80.8 Family history of malignant neoplasm of other organs or systems; Z82.49 Family history of ischemic heart disease and other diseases of the circulatory system; Z79.899 Other long term (current) drug therapy

== ENCOUNTER 2020-09-14 14:51 | Inpatient (IN) | payer OTHER ==
[~2020-09-14] VITALS: Ht 175.3 cm; Wt 117.0 kg
[~2020-09-14 14:51] MED LIST changes: +DECADRON6 M1 PO; +DIGOXIN0.125 MG/1 PO; +DIGOXIN125 MCG PO; +ENALAPRIL10 MG PO; +LEVOFLOXACIN500 MG PO; +NYSTATIN CREAM15 GM T
[2020-09-14 14:54] VITALS: BP 120/74
[2020-09-14 15:42] LABS: HEMATOCRIT 47.7 % (42.0-52.0); MEAN CELL VOLUME 95.4 fl (80.0-94.0); MEAN CORPUSCULAR HGB 31.4 pg (27.0-31.0); MEAN CORPUSCULAR HGB CONC 32.9 g/dl (33.0-37.0); MEAN PLATELET VOLUME 10.5 fl (9.6-12.3); PLATELET COUNT AUTOMATED 289 10*3/uL (130-400); RED CELL DISTRI WIDTH 14.5 % (0-14.5); WHITE BLOOD COUNT 12.3 10*3/uL (4.8-10.8)
[2020-09-14 15:53] LABS: ACT PARTIAL THROMBO TIME 28.5 SECONDS (20.0-32.1); INTERNATIONAL NORM RATIO 1.5 (2.0-3.5)
[2020-09-14 16:01] LABS: ALBUMIN 2.8 gm/dl (3.1-4.5); ATYPICAL LYMPHS 1 % (0-0); CREATININE 1.45 mg/dL (0.70-1.30); PLATELET SUFFICIENCY NORMAL (NORMAL); POLYCHROMASIA SLIGHT; POTASSIUM 4.7 mmol/L (3.5-5.1); TOTAL CELLS COUNTED 100 #CELLS; TOTAL PROTEIN 7.8 gm/dL (6.4-8.2)
[2020-09-14 16:06] LABS: TROPONIN I 4.52 ng/ml (<0.045)
[2020-09-14 16:46] LABS: ABG BASE EXCESS -2.1 mmol/L (-2.0-2.0); ARTERIAL BLOOD GAS PH 7.466 (7.35-7.45)
--- NOTE | 2020-09-14 18:02 | NUR ---
DIETARY TRAY ORDERED AT THIS TIME. DIETARY CONTACTED TO CONFIRM ORDER WAS RECEIVED.
--- NOTE | 2020-09-14 19:38 | NUR ---
PATIENT REFUSING BIPAP. ALSO DISCUSSED INTUBATION WITH PATIENT. HE STATED " I DONT WANT THAT EITHER" PLACE ON 15L HIGH FLOW NASAL CANNULA AND 15L NON REBREATHER. SPO2 CURRENTLY 94 %
--- NOTE | 2020-09-14 19:57 | NUR ---
PT REFUSING BIPAP AND INTUBATION AT THIS TIME. WHEN ASKED ABOUT RESPIRATORY SUPPORT PT STATES "HE DOES NOT WANT IT". PT ALSO REFUSING WOUND PICTURES AT THIS TIME. STATES "THEY TOOK PICTURES WHEN I WAS HERE LAST TIME." NURSE CHARISMA MANZANARES ALSO AT BEDSIDE AT THIS TIME. PT GIVEN DINNER TRAY. TRAY REMAINS UNTOUCHED AT THIS TIME. PT STATES "HE DONT LIKE ANYTHING ON TRAY." THIS RN WILL CONTINUE TO MONITOR.
[2020-09-14 20:44] VITALS: BP 106/76
--- NOTE | 2020-09-14 22:05 | NUR ---
CRITICAL RESULT FOR TROPONIN OF 10.[address] BOWERS BY VIRGIE CORADO. VIRGIE CORADO CONTACTED OLAP DEVELOPER SERVICE FOR DR CAMPOS WITH NO RETURN PHONE CALL AT THIS TIME.
--- NOTE | 2020-09-14 22:14 | NUR ---
CONSULT CALLS WERE MADE FOR DR CAMPOS, DR SALEH, AND DR JACKMAN AT THIS TIME. THIS RN AWAITING RETURN CALL FROM ALL. WILL CONTINUE TO MONITOR.
--- NOTE | 2020-09-14 22:19 | NUR ---
DR JACKMAN CALLED BACK. INFORMED THAT PT REFUSES INTUBATION AND BIPAP. NO NEW ORDERS GIVEN AT THIS TIME.
--- NOTE | 2020-09-14 22:20 | NUR ---
DR YANEZ CALLED BACK AT THIS TIME. STATES SHE WILL LOOK THROUGH PT HISTORY AT THIS TIME. NO NEW ORDERS GIVEN TO THIS RN AT THIS TIME.
[2020-09-15] VITALS (13 sets, daily range): BP systolic 107–152; BP diastolic 54–107
--- NOTE | 2020-09-15 03:29 | NUR ---
THIS RN TRIED AGAIN TO CONTACT DR CAMPOS IMPORT COORDINATOR SERVICE. DR ECHEVERRIA IS COVERING FOR BETH. DR ECHEVERRIA TOLD IMPORT COORDINATOR HE IS "NOT ROUNDING AT [place]". THIS RN WAS THEN TRANSFERRED TO ANOTHER PHONE BY IMPORT COORDINATOR AND PHONE RANG TO FAX MACHINE.
--- NOTE | 2020-09-15 03:33 | NUR ---
RESIDENT CONTACTED AT THIS TIME ABOUT INABILITY TO CONTACTY LOCKSTITCH TOPSTITCHER. DR BOWERS REQUESTS ANOTHER PHONE CALL TO DR CAMPOS AT THIS TIME.
--- NOTE | 2020-09-15 03:38 | NUR ---
DR ECHEVERRIA CONTACTED AT THIS TIME. STATES THAT HE WILL CONTACT WOOD HEEL FLAP TRIMMER ABOUT BEDS AT THIS TIME.
--- NOTE | 2020-09-15 03:51 | NUR ---
DARREN NURSE KEY BED INSTALLER FROM [facility] CONTACTED THIS RN TO OBTAIN INFORMATION ABOUT PT. STATES SHE WILL BE SETTING UP FOR A HEART CATH IN THE AM. THIS RN INFORMED RESIDENT AND COUNTERINTELLIGENCE ANALYST THAT PT WILL BE TRANSFERRED TO [facility]. WILL CONTINUE TO MONITOR.
--- NOTE | 2020-09-15 04:41 | NUR ---
DARREN NURSE SENIOUR INSIGHT MANAGER CALLED TO CONFIRM PT APPOINTMENT TIME AT 0800. SCREW MACHINE OPERATOR ALERTED AND WILL SET UP TRANSPORT.
--- NOTE | 2020-09-15 05:10 | NUR ---
PT REPEATEDLY REMOVING PULSE OX AND NON REBREATHER. THIS RN REDIRECTED PT AND REQUESTED THAT HE LEAVE ON FINGER. THIS RN EXITED ROOM AND PT REMOVED PULSE OX AGAIN. WILL FOLLOW UP WITH PT.
--- NOTE | 2020-09-15 05:22 | NUR ---
DR CAMPOS CALLED THIS RN. INFORMED HIM THAT DR ECHEVERRIA IS HAVING PT TRANSPROTED FOR CATH THIS AM.
[2020-09-15 05:25] LABS: ALBUMIN 2.5 gm/dl (3.1-4.5); ALKALINE PHOSPHATASE 80 U/L (45-117); BUN 32 mg/dl (7-24); CHLORIDE 106 mmol/L (98-107); CREATININE 1.17 mg/dL (0.70-1.30); LDH 671 U/L (87-241); POTASSIUM 3.8 mmol/L (3.5-5.1); SGOT/AST 126 IU/L (3-35); SGPT/ALT 26 U/L (12-78); SODIUM 140 mmol/L (136-145); TOTAL PROTEIN 7.1 gm/dL (6.4-8.2)
--- NOTE | 2020-09-15 05:46 | NUR ---
DR BOWERS CONTACTED ABOUT TROPONIN LEVEL OF 20.0 AT THIS TIME. ROBINSON REQUESTING THIS RN CALL DR CAMPOS. BETH CONTACTED AND STATES THERE IS NOTHING THEY CAN DO AT THIS TIME. WILL CONTINUE TO MONITOR PT AT THIS TIME.
[2020-09-15 06:09] LABS: HEMATOCRIT 46.8 % (42.0-52.0); MEAN CELL VOLUME 96.7 fl (80.0-94.0); MEAN CORPUSCULAR HGB 31.2 pg (27.0-31.0); MEAN CORPUSCULAR HGB CONC 32.3 g/dl (33.0-37.0); MEAN PLATELET VOLUME 10.5 fl (9.6-12.3); PLATELET COUNT AUTOMATED 278 10*3/uL (130-400); RED BLOOD COUNT 4.84 10*6/uL (4.50-5.90); RED CELL DISTRI WIDTH 14.3 % (0-14.5); WHITE BLOOD COUNT 12.3 10*3/uL (4.8-10.8)
[2020-09-15 06:22] LABS: ACT PARTIAL THROMBO TIME 42.6 SECONDS (20.0-32.1)
[2020-09-15 06:48] LABS: TOTAL CELLS COUNTED 100 #CELLS
[2020-09-15 06:49] LABS: PLATELET SUFFICIENCY NORMAL (NORMAL); POLYCHROMASIA SLIGHT
--- NOTE | 2020-09-15 07:02 | NUR ---
NURSE TO NURSE REPORT GIVEN TO RN AT [place] [facility] AT THIS TIME. RN STATES THAT PT WILL BE TRANSFERRED TO INPATIENT ROOM 627 PRIOR TO PROCEDURE.
--- NOTE | 2020-09-15 08:11 | NUR ---
[facility] WOULD NOT ACCEPT PT. CALLED HOSPITALIST AND DR CAMPOS TO FIND PLACEMENT. PT STILL REFUSES TO BE INTUBATED OR HAVE BIPAP
--- NOTE | 2020-09-15 08:51 | NUR ---
FERMIN MATHEW STATED TO ME THAT THE PT IS TO BE CHANGED TO A DNRCC-A, NO INTUBATION ONLY. PT NOW WILL ACCEPT TO BE PUT ON BIPAP
--- NOTE | 2020-09-15 10:16 | NUR ---
HEPARIN INFUSION COMPLETED
--- NOTE | 2020-09-15 11:39 | NUR ---
PT REPOSITIONED IN BED. NO NEEDS AT THIS TIME.
--- NOTE | 2020-09-15 14:26 | NUR ---
FERMIN MATHEW CALLED AND SAID PT IS TO BE ON CONTINUOUS HEPARIN INFUSION. APTT WAS ORDERED AND WILL GO FROM THERE ON WHAT TO START PT ON.
--- NOTE | 2020-09-15 14:59 | NUR ---
PTS DAUGHTER ZAMZAM # [phone] DAUGHTER WOULD LIKE UPDATED IF ANYTHING HAPPENS.
--- NOTE | 2020-09-15 15:27 | NUR ---
PTS APTT CAME BACK 29.6. PER PROTOCOL, HEPARIN INCREASED TO 16U/HR
--- NOTE | 2020-09-15 19:19 | NUR ---
REPORT RECIEVED FROM Farida BROCK RN
--- NOTE | 2020-09-15 20:30 | NUR ---
A 69, admitted to ICCU, under the services of FINN Mckeon DO with a diagnosis of RESP. FAILURE, NSTEMI. Chief complaint is SHORTNESS OF BREATH. Patient arrived via stretcher from ER. Monitor applied. Initial assessment completed. Vital signs taken and recorded. FINN MCKEON DO notified of admission to the unit. Orders received. See assessment for past medical history, medications and allergies. Patient and/or family oriented to unit. [facility] ICCU visitation policy reviewed. Clothing/patient valuable form completed. JOYCE DAVIS
--- NOTE | 2020-09-15 20:35 | NUR ---
ATTEMPTED TO PLACE PATIENT ON THE BIPAP WHEN HE ARRIVED TO THE ICCU. AFTER 2 SECONDS HE SAID " TAKE THIS OFF, ITS TO CONFINING". I THE RESPIRATORY THERAPIST IN FRONT OF THE RN ASKED IF HE UNDERSTOOD THAT WITHOUT THIS MACHINE HIS TURNOUT MAY NOT BE PROMISING. HE FULLY UNDERSTOOD HIS SITUTION, AND WANTS TO COMFORTABLE. PATIENT ALSO STATED THAT HE DOES NOT WISH TO BE INTUBATED AND PLACED ON A VENTILATOR. RN PRESENT AT THE MOMENT AND ALSO AWARE OF THE SITUATION.
--- NOTE | 2020-09-15 21:03 | NUR ---
2044 - PT. SHORT OF BREATH, RECEIVED FROM ER. CURRENTLY ON 15L NRB AND 15 HFL NC. PT. STATED HE DOES NOT WANT TO WEAR BIPAP, DOES NOT WANT TO BE INTUBATED, DOES NOT WANT CPR OR DEFIB. CURRENTLY TALKING TO DR. BOWERS REGARDING CODE STATUS. DR. JACKMAN UPDATED TO PT STATUS. PULSE OX 93% ON ABOVE. LUNGS DIMINISHED BILAT. JOYCE DAVIS RN
--- NOTE | 2020-09-15 22:16 | NUR ---
PT. FOUND IN ROOM WITH OXYGEN OFF. LIPS PURPLE, PULSE OX 48% WHEN CHECKED. GAVE PT LECTURE ON WEARING OXYGEN, REMAINS ALERT AND ORIENTED. WHEN COMMENT WAS MADE ABOUT IT SNOWING OUTSIDE, PT. STATED "IT'S ALMOST DAY IN A FEW HOURS, IT NEEDED TO SNOW". PULSE OX BACK TO 83%. CODE STATUS CHANGED BY DR. BOWERS AFTER TALKING WITH PATIENT TO DNR:CC AND PT. MADE MED SURG WITH ABILITY TO TRANSFER OUT OF ICU IF NEED BY. [place] [facility] [place]. JOYCE DAVIS RN
--- NOTE | 2020-09-15 22:58 | NUR ---
PT'S PTT 53.3, NO CHANGE. NEXT PTT IN AM.
--- NOTE | 2020-09-15 23:21 | NUR ---
PT. TRANSFERRED TO ORDERED, REPORT GIVEN TO JAYMIE RN. ALL BELONGINGS SENT WITH PATIENT, PULSE OX REMAINS 85-87% ON NONREBREATHER AND 15LHF. JOYCE DAVIS RN
--- NOTE | 2020-09-15 23:53 | NUR ---
PT TRANSFERRED FROM ICU TO 521 REPORT OBTAINED. PT SEEN AND ASSESSED.
--- NOTE | 2020-09-15 23:59 | NUR ---
PT MEDICATED FOR C/O OF PAIN. 03/02. MORPHINE PROVIDED. WILL REASSESS.
[2020-09-16] VITALS: BP 101/73
--- NOTE | 2020-09-16 00:50 | NUR ---
PT RESTING WITH EYES CLOSED AND APPEARS TO BE SLEEPING
--- NOTE | 2020-09-16 04:12 | NUR ---
PRN IV MORPHINE GIVEN FOR C/O GENERALIZED PAIN 05/02
--- NOTE | 2020-09-16 05:10 | NUR ---
PT RESTING WITH EYES CLOSED AND VERBALIZES NO C/O PAIN AT THIS TIME
[2020-09-16 06:00] LABS: HEMATOCRIT 48.9 % (42.0-52.0); MEAN CELL VOLUME 96.6 fl (80.0-94.0); MEAN CORPUSCULAR HGB CONC 32.1 g/dl (33.0-37.0); MEAN PLATELET VOLUME 10.4 fl (9.6-12.3); NUCLEATED RED BLOOD CELL 0.1 % (0.0-0.0); PLATELET COUNT AUTOMATED 309 10*3/uL (130-400); RED BLOOD COUNT 5.06 10*6/uL (4.50-5.90); RED CELL DISTRI WIDTH 14.3 % (0-14.5); WHITE BLOOD COUNT 15.2 10*3/uL (4.8-10.8)
--- NOTE | 2020-09-16 06:15 | NUR ---
PT WAS FOUND TO HAVE REMOVED HIS OXYGEN, POX WAS 30-40. REPIRATORY CALLED TO ASSESS AND HELP WITH MAINTANENCE OF COMFORT. OXYGEN REAPPLIED PT POX THEN RECHECKED AND WAS FOUND TO BE 88-90%
[2020-09-16 06:29] LABS: ALBUMIN 2.6 gm/dl (3.1-4.5); BUN 37 mg/dl (7-24); CHLORIDE 106 mmol/L (98-107); LDH 740 U/L (87-241); POTASSIUM 4.1 mmol/L (3.5-5.1); SGOT/AST 94 IU/L (3-35); SGPT/ALT 32 U/L (12-78); SODIUM 141 mmol/L (136-145); TOTAL PROTEIN 7.5 gm/dL (6.4-8.2)
[2020-09-16 06:36] LABS: ALKALINE PHOSPHATASE 99 U/L (45-117)
--- NOTE | 2020-09-16 07:38 | NUR ---
Shift chart check completed.
[2020-09-16 08:00] VITALS: BP 140/57
--- NOTE | 2020-09-16 08:00 | NUR ---
PATIENT RESTING IN BED. LETHARGIC . POX 82% ON 15L HFNC AND 15L NONREBREATHER. PATIENT CO PAIN ALL OVER. RESPS 34/MIN. PATIENT REQUESTING SOMETHING FOR PAIN. DENIES ANY OTHER COMPLAINT. PATIENT PULLS OFF HIS NONREBREATHER AND HFNC AND POX GOES DOWN TO 30%. CALL LIGHT IN REACH. WILL MONITOR.
[2020-09-16 08:11] LABS: PLATELET SUFFICIENCY NORMAL (NORMAL); TOTAL CELLS COUNTED 100 #CELLS
--- NOTE | 2020-09-16 10:23 | NUR ---
PATIENT AT THIS TIME.
--- NOTE | 2020-09-16 10:30 | NUR ---
BLANK, SOFT WORK CIGAR MACHINE OPERATOR NOTIFIED THAT PATIENT .
--- NOTE | 2020-09-16 11:15 | NUR ---
ONE CALL NOTIFIED PATIENT . SPOKE WITH YANETH SHE STATES BODY MAY BED RELEASED.
--- NOTE | 2020-09-16 12:00 | NUR ---
DAUGHTER, INDIGO CALL IN FOR AN UPDATE ON PATIENT AND WAS NOTIFIED OF HER DADS PASSING. LET HER KNOW I TRIED TO GET AHOLD OF HER MOTHER AND SHE STATES HER MOM IS IN ANOTHER HOSPITAL AND THAT IS WHY I WAS UNABLE TO REACH HER. DAUGHTER INFORMED FAMILY IS ALLOWED TO COME IN AND SEE HER DAD IF SHE WOULD LIKE.
--- NOTE | 2020-09-16 13:00 | NUR ---
DAUGHTER, INDIGO STATES HER AND HER WILL BE IN TO SEE HER DAD BUT IT WILL BE ABOUT 3 HOURS BECAUSE THEY ARE COMING FROM A COUPLE HRS AWAY.
--- NOTE | 2020-09-16 14:24 | NUR ---
UNABLE TO GET AHOLD OF THE ONLY CONTACT (JEANNE FERNANDO) THAT WE HAVE FOR PATIENT WILL CONTINUE TO TRY TO GET AHOLD OF SOMEONE.
--- NOTE | 2020-09-16 15:53 | NUR ---
DAUGHTER, INDIGO IN TO SEE HER FATHER. SHE IS UNSURE OF A HOME AND STATES SHE WILL HAVE TO TALK WITH HER BROTHER.
--- NOTE | 2020-09-16 17:27 | NUR ---
PATIENTS BODY RELEASED TO THE [facility] [place]. DAUGHTER, INDIGO STATES SHE WILL CALL ABOUT HOME ARRANGEMENTS ONCE SHE TALKS WITH HER BROTHER. INDIGO- [phone]
== END 2020-09-16 18:30 | disposition expired | DRG 871 ==
LOC: ED → EDHOLD 17:37 → ICCU 09-15 18:22 → 4E 09-15 23:09
PROVIDERS: Emergency Medicine; Social Worker Clinical; Student in an Organized Health Care Education/Training Program; ADMIT Student in an Organized Health Care Education/Training Program; ATTEND Student in an Organized Health Care Education/Training Program
PROC: XW033E5 Introduction of Remdesivir Anti-infective into Peripheral Vein, Percutaneous Approach, New Technology Group 5 (ICD-10-PCS; principal; 2020-09-14)
PROC: 5A09357 Assistance with Respiratory Ventilation, Less than 24 Consecutive Hours, Continuous Positive Airway Pressure (ICD-10-PCS; 2020-09-15)
PROC: 5A0935A Assistance with Respiratory Ventilation, Less than 24 Consecutive Hours, High Flow/Velocity Cannula (ICD-10-PCS; 2020-09-15)
DX: A41.9 Sepsis, unspecified organism (principal); N17.0 Acute kidney failure with tubular necrosis; U07.1 COVID-19; I21.4 Non-ST elevation (NSTEMI) myocardial infarction; J96.00 Acute respiratory failure, unspecified whether with hypoxia or hypercapnia; I50.23 Acute on chronic systolic (congestive) heart failure; J12.89 Other viral pneumonia; E44.0 Moderate protein-calorie malnutrition; E87.2 Acidosis; Z66 Do not resuscitate; Z51.5 Encounter for palliative care; R65.20 Severe sepsis without septic shock; I48.91 Unspecified atrial fibrillation; D75.89 Other specified diseases of blood and blood-forming organs; M19.90 Unspecified osteoarthritis, unspecified site; E66.9 Obesity, unspecified; I25.10 Atherosclerotic heart disease of native coronary artery without angina pectoris; Z96.653 Presence of artificial knee joint, bilateral; F17.210 Nicotine dependence, cigarettes, uncomplicated; D72.810 Lymphocytopenia; R73.9 Hyperglycemia, unspecified; E83.41 Hypermagnesemia; I11.0 Hypertensive heart disease with heart failure; Z82.49 Family history of ischemic heart disease and other diseases of the circulatory system; Z88.0 Allergy status to penicillin; Z88.8 Allergy status to other drugs, medicaments and biological substances; Z79.899 Other long term (current) drug therapy; Z68.38 Body mass index [BMI] 38.0-38.9, adult; Z79.1 Long term (current) use of non-steroidal anti-inflammatories (NSAID)